=== PATIENT | female | born 1960 | race Caucasian/White ===

== ENCOUNTER 2016-09-25 19:24 | Emergency (ER) | payer BC ==
[~2016-09-25] VITALS: Ht 157.5 cm; Wt 71.7 kg
[2016-09-25 19:49] VITALS: BP_SYST 146
[2016-09-25] MEDS ORDERED: NACL 0.9% 1,000 ML IV ONE (20:30)
[2016-09-25] MEDS ORDERED: KETOROLAC TROMETHAMINE 30 MG VIAL IVP ONE (20:30)
[2016-09-25 21:07] LABS: BASOPHILS # (AUTO) 0.1 K/uL (0.0-0.2); BASOPHILS % (AUTO) 1.2 % (0.0-2.0); EOSINOPHILS # (AUTO) 0.3 K/uL (0.0-0.4); EOSINOPHILS % (AUTO) 3.2 % (0.0-4.0); HEMATOCRIT 45.3 % (36-48); HEMOGLOBIN 14.5 g/dL (12.0-16.0); LYMPHOCYTES # (AUTO) 3.3 K/uL (1.0-5.5); LYMPHOCYTES % (AUTO) 37.6 % (20.5-51.5); MEAN CORPUSCULAR HEMOGLOBIN 28 pg (27-31); MEAN CORPUSCULAR HGB CONC 32 % (32-36); MEAN CORPUSCULAR VOLUME 88 fL (79.0-98.0); MONOCYTES % (AUTO) 11.2 % (1.7-9.3); NEUTROPHILS % (AUTO) 46.8 % (40.0-70.0); PLATELET COUNT (AUTO) 273 K/uL (130-430); RED BLOOD CELL COUNT(AUTO) 5.13 MIL/uL (4.2-6.2); RED CELL DISTRIBUTION WIDTH 13.3 % (9.0-15.0); WHITE BLOOD COUNT (AUTO) 8.7 K/uL (4.8-10.8)
[2016-09-25 21:21] LABS: BILIRUBIN,URINE NEGATIVE (NEGATIVE); BLOOD, URINE NEGATIVE (NEGATIVE); CLARITY/URINE CLEAR (CLEAR); COLOR,URINE YELLOW (YELLOW); GLUCOSE,URINE NEGATIVE (NEGATIVE); KETONES,URINE NEGATIVE (NEGATIVE); LEUKOCYTE ESTERASE ,URINE TRACE (NEGATIVE); NITRITE, URINE NEGATIVE (NEGATIVE); PROTEIN URINE NEGATIVE (NEGATIVE); UROBILINOGEN,URINE 0.2 (0.2-1.0)
[2016-09-25 21:31] LABS: CALCIUM 8.7 mg/dL (8.4-11.0); CREATININE 0.58 mg/dL (0.55-1.30); POTASSIUM 4.3 mmol/L (3.5-5.1)
[2016-09-25 21:36] LABS: ALBUMIN 4.1 g/dL (3.4-4.8); TOTAL BILIRUBIN 0.2 mg/dL (0.0-1.0); TOTAL PROTEIN, SERUM 7.4 g/dL (6.4-8.3)
[2016-09-25 21:40] LABS: BACTERIA,URINE FEW /HPF (None Seen); RBC,URINE 0-3 /HPF (0-3)
[2016-09-25 21:41] LABS: MUCUS,URINE None Seen /LPF (None Seen)
[2016-09-25] MEDS ORDERED: SULFAMETHOXAZOLE/TRIMETHOPR DS 1 TABLET PO ONE (22:15)
[2016-09-25 22:17] VITALS: BP_SYST 139
== END 2016-09-25 22:17 | disposition home or self-care (01) ==
LOC: SED 19:24
DX: N39.0 Urinary tract infection, site not specified (principal); G43.909 Migraine, unspecified, not intractable, without status migrainosus; Z88.1 Allergy status to other antibiotic agents
CPT/HCPCS: 36415; 80053; 81000; 85025; 87040; 87086; 96360; 99284; J1885; J7030

== ENCOUNTER 2016-11-18 18:48 | Emergency (ER) | payer BC ==
[~2016-11-18] VITALS: Ht 157.5 cm; Wt 65.8 kg
[2016-11-18 19:11] VITALS: BP_SYST 163
--- NOTE | 2016-11-18 19:59 | NUR ---
Patient to ER bed 7 to gown for evaluation. Side rails up. Report given to SAUD BLAND.
--- NOTE | 2016-11-18 20:10 | NUR ---
Anabell Barlow MACHINE [employer] APPRENTICE at bedside examining patient
--- NOTE | 2016-11-18 20:10 | NUR ---
Pt brought by self, A&Ox4, respirations even and unlabored, pt states he had intermittent hives and her throat was closing, denies symptoms at this time, VS WNL, ambulatory, respirations even and unlabored, cap refill <3, O2 98% room air, no swelling noted.
[2016-11-18] MEDS ORDERED: LORATADINE 10 MG TABLET PO ONE (20:15)
[2016-11-18] MEDS ORDERED: EPINEPHrine 1 MG/ML AMP IM ONE (20:15)
[2016-11-18] MEDS ORDERED: PREDNISONE 20 MG TABLET PO ONE (20:15)
[2016-11-18] MEDS ORDERED: FAMOTIDINE 20 MG TABLET PO ONE (20:15)
--- NOTE | 2016-11-18 20:18 | NUR ---
Pt refused medications and eloped from the ER.
== END 2016-11-18 20:18 | disposition left against medical advice (07) ==
LOC: SED 18:48
DX: T78.49XA Other allergy, initial encounter (principal); R03.0 Elevated blood-pressure reading, without diagnosis of hypertension; G43.909 Migraine, unspecified, not intractable, without status migrainosus; Z53.20 Procedure and treatment not carried out because of patient's decision for unspecified reasons; Z88.1 Allergy status to other antibiotic agents; Z91.013 Allergy to seafood; X58.XXXA Exposure to other specified factors, initial encounter
CPT/HCPCS: 99282

== ENCOUNTER 2018-07-29 11:59 | Emergency (ER) | payer BC ==
[~2018-07-29] VITALS: Ht 157.5 cm; Wt 68.0 kg
[2018-07-29 12:09] VITALS: BP_SYST 151
--- NOTE | 2018-07-29 12:10 | NUR ---
Patient to ER bed 7 to gown for evaluation.
--- NOTE | 2018-07-29 12:15 | NUR ---
Pt presents to ED c/o RUQ abd pain since June gradually worsening.Pt has no acute distress noted.
--- NOTE | 2018-07-29 12:20 | NUR ---
ER at bedside examining patient.
[2018-07-29] MEDS ORDERED: KETOROLAC TROMETHAMINE 30 MG VIAL IVP ONE (12:30)
[2018-07-29] MEDS ORDERED: NACL 0.9% 1,000 ML IV ONE (12:30)
[2018-07-29 13:46] LABS: BILIRUBIN,URINE NEGATIVE (NEGATIVE); BLOOD, URINE NEGATIVE (NEGATIVE); CLARITY/URINE CLEAR (CLEAR); COLOR,URINE YELLOW (YELLOW); GLUCOSE,URINE NEGATIVE (NEGATIVE); KETONES,URINE NEGATIVE (NEGATIVE); LEUKOCYTE ESTERASE ,URINE NEGATIVE (NEGATIVE); NITRITE, URINE NEGATIVE (NEGATIVE); PROTEIN URINE NEGATIVE (NEGATIVE); UROBILINOGEN,URINE 0.2 (0.2-1.0)
[2018-07-29 13:49] LABS: BASOPHILS % (AUTO) 0.6 % (0.0-2.0); EOSINOPHILS # (AUTO) 0.1 K/uL (0.0-0.4); EOSINOPHILS % (AUTO) 1.9 % (0.0-4.0); HEMOGLOBIN 15.1 g/dL (12.0-16.0); LYMPHOCYTES # (AUTO) 2.7 K/uL (1.0-5.5); LYMPHOCYTES % (AUTO) 35.5 % (20.5-51.5); MEAN CORPUSCULAR HEMOGLOBIN 29 pg (27-31); MEAN CORPUSCULAR HGB CONC 33 % (32-36); MEAN CORPUSCULAR VOLUME 87 fL (79.0-98.0); MONOCYTES # (AUTO) 0.6 K/uL (0.0-1.0); MONOCYTES % (AUTO) 8.1 % (1.7-9.3); NEUTROPHILS # (AUTO) 4.1 K/uL (1.8-7.7); NEUTROPHILS % (AUTO) 53.9 % (40.0-70.0); PLATELET COUNT (AUTO) 253 K/uL (130-430); RED BLOOD CELL COUNT(AUTO) 5.19 MIL/uL (4.2-6.2); RED CELL DISTRIBUTION WIDTH 14.3 % (9.0-15.0); WHITE BLOOD COUNT (AUTO) 7.7 K/uL (4.8-10.8)
[2018-07-29 14:02] LABS: CREATININE 0.65 mg/dL (0.55-1.30); POTASSIUM 3.7 mmol/L (3.5-5.1)
[2018-07-29 14:08] LABS: ALBUMIN 3.7 g/dL (3.4-4.8); TOTAL BILIRUBIN 0.2 mg/dL (0.0-1.0)
--- NOTE | 2018-07-29 15:04 | NUR ---
Patient given written and verbal discharge instructions and verbalizes understanding. ER MD Delarosa discussed with patient the results and treatment provided. Patient in stable condition. ID arm band removed. IV catheter removed intact and dressing applied, no active bleeding. No Rx given. Patient educated on pain management and to follow up with PMD. Pain Scale 0. Opportunity for questions provided and answered. Medication side effect fact sheet provided.
[2018-07-29 15:14] VITALS: BP_SYST 142
== END 2018-07-29 15:14 | disposition home or self-care (01) ==
LOC: SED 11:59
DX: K82.4 Cholesterolosis of gallbladder (principal)
CPT/HCPCS: 36415; 76700; 80053; 81003; 82150; 83690; 85025; 96374; 99284; J1885; J7030

== ENCOUNTER 2020-04-30 13:13 | Emergency (ER) | payer BC ==
[~2020-04-30] VITALS: Ht 157.5 cm; Wt 72.6 kg
[2020-04-30 13:17] VITALS: BP_SYST 159
[2020-04-30 15:22] VITALS: BP_SYST 142
== END 2020-04-30 15:22 | disposition home or self-care (01) ==
LOC: SED 13:13
DX: M54.41 Lumbago with sciatica, right side (principal); M79.661 Pain in right lower leg; Z88.1 Allergy status to other antibiotic agents; Z91.013 Allergy to seafood
CPT/HCPCS: 93971; 99284

== ENCOUNTER 2020-05-22 10:20 | Emergency (ER) | payer BC ==
[~2020-05-22] VITALS: Ht 160 cm; Wt 72.6 kg
[2020-05-22 10:28] VITALS: BP_SYST 162
[2020-05-22] MEDS ORDERED: KETOROLAC TROMETHAMINE 60 MG/2 ML VIAL IM ONE ×2 (10:40→10:45)
[2020-05-22] MEDS ORDERED: NAPR-1172 PO (11:30)
[2020-05-22 11:35] VITALS: BP_SYST 144
== END 2020-05-22 11:36 | disposition home or self-care (01) ==
LOC: SED 10:20
DX: M54.41 Lumbago with sciatica, right side (principal); Z88.1 Allergy status to other antibiotic agents; Z91.013 Allergy to seafood
CPT/HCPCS: 96372; 99283; J1885

== ENCOUNTER 2021-01-17 10:08 | Emergency (ER) | payer BC ==
[~2021-01-17] VITALS: Ht 162.6 cm; Wt 72.6 kg
[~2021-01-17 10:08] MED LIST: NAPR-1172 PO
[2021-01-17 10:41] VITALS: BP_SYST 136
--- NOTE | 2021-01-17 10:44 | NUR ---
Patient to ER bed 1 to gown for evaluation. Side rails up. Report given to Maru BLAND.
--- NOTE | 2021-01-17 10:45 | NUR ---
ER DR. OCHOA AT THE BEDSIDE EXAMINING PT
[2021-01-17] MEDS ORDERED: LEVO750T45 PO (10:50)
[2021-01-17] MEDS ORDERED: FLUC150T PO (10:50)
--- NOTE | 2021-01-17 10:50 | NUR ---
PT CAME INTO ER C/O UTI SYMPTOMS, URINARY BURNING AND FREQUENCY. PT REQUESTING RX MEDICATONS. PT IS AMBULATORY, AAOX4, V/S STABLE
[2021-01-17 10:59] VITALS: BP_SYST 136
--- NOTE | 2021-01-17 11:01 | NUR ---
Patient given written and verbal discharge instructions and verbalizes understanding. ER MD discussed with patient the results and treatment provided. Patient in stable condition. ID arm band removed. Rx of DIFLUCAN AND LEVAQUIN given. Patient educated on pain management and to follow up with PMD. Pain Scale 0/10. Opportunity for questions provided and answered. Medication side effect fact sheet provided.
== END 2021-01-17 10:59 | disposition home or self-care (01) ==
LOC: SED 10:08
DX: N39.0 Urinary tract infection, site not specified (principal); Z88.8 Allergy status to other drugs, medicaments and biological substances; Z91.013 Allergy to seafood; Z79.899 Other long term (current) drug therapy; Z88.1 Allergy status to other antibiotic agents
CPT/HCPCS: 99283

== ENCOUNTER 2021-04-21 17:21 | Emergency (ER) | payer BC ==
[~2021-04-21] VITALS: Ht 157.5 cm; Wt 77.1 kg
[~2021-04-21 17:21] MED LIST changes: +FLUC150T PO; +LEVO750T45 PO
[2021-04-21 17:30] VITALS: BP_SYST 163
--- NOTE | 2021-04-21 17:38 | NUR ---
Patient to ER bed 02 to gown for evaluation. Side rails up.
--- NOTE | 2021-04-21 18:03 | NUR ---
Pt is A&Ox4. No s/s of distress. States she has no more jaw pain. VSS. Family member at bedside.
--- NOTE | 2021-04-21 18:14 | NUR ---
ER Physician at bedside.
[2021-04-21 19:05] LABS: BASOPHILS % (AUTO) 0.5 % (0.0-2.0); EOSINOPHILS % (AUTO) 0.1 % (0.0-4.0); HEMATOCRIT 44.4 % (36-48); HEMOGLOBIN 14.7 g/dL (12.0-16.0); LYMPHOCYTES # (AUTO) 2.2 K/uL (1.0-5.5); LYMPHOCYTES % (AUTO) 22.1 % (20.5-51.5); MEAN CORPUSCULAR HEMOGLOBIN 28 pg (27-31); MEAN CORPUSCULAR HGB CONC 33 % (32-36); MEAN CORPUSCULAR VOLUME 84 fL (79.0-98.0); MONOCYTES # (AUTO) 0.7 K/uL (0.0-1.0); MONOCYTES % (AUTO) 7.5 % (1.7-9.3); NEUTROPHILS # (AUTO) 6.8 K/uL (1.8-7.7); NEUTROPHILS % (AUTO) 69.8 % (40.0-70.0); PLATELET COUNT (AUTO) 297 K/uL (130-430); RED BLOOD CELL COUNT(AUTO) 5.27 MIL/uL (4.2-6.2); WHITE BLOOD COUNT (AUTO) 9.8 K/uL (4.8-10.8)
[2021-04-21 19:10] LABS: CREATININE 0.52 mg/dL (0.55-1.30); POTASSIUM 4.1 mmol/L (3.5-5.1)
[2021-04-21 19:19] LABS: ALBUMIN 3.9 g/dL (3.4-4.8); TOTAL BILIRUBIN 0.1 mg/dL (0.0-1.0)
[2021-04-21 20:20] VITALS: BP_SYST 162
--- NOTE | 2021-04-21 20:21 | NUR ---
Patient given written and verbal discharge instructions and verbalizes understanding. ER MD discussed with patient the results and treatment provided. Patient in stable condition. ID arm band removed. Patient educated on pain management and to follow up with PMD. Pain Scale . Opportunity for questions provided and answered. Medication side effect fact sheet provided.
== END 2021-04-21 20:21 | disposition home or self-care (01) ==
LOC: SED 17:21
DX: R68.84 Jaw pain (principal); Z88.1 Allergy status to other antibiotic agents; Z88.8 Allergy status to other drugs, medicaments and biological substances; Z79.899 Other long term (current) drug therapy
CPT/HCPCS: 36415; 71045; 80053; 83880; 84484; 85025; 85379; 93005; 99285

== ENCOUNTER 2021-08-31 00:16 | Emergency (ER) | payer BC ==
[~2021-08-31] VITALS: Ht 157.5 cm; Wt 78.9 kg
[2021-08-31 00:38] VITALS: BP_SYST 143
--- NOTE | 2021-08-31 00:51 | NUR ---
HERE FOR POSSIBLE ALLERGIC REACTION TO BACTRIM, PATIENT STATES THAT SHE IS ON ANTIBIOTICS FOR RECENTLY DX CHEKO UTI, PER PT SHE STOPS TAKING MEDS WHEN SHE NOTICED THAT HER LIPS SWELLS AND HAVING GENERALIZED RASH. PT STILL C/O DYSURIA.
[2021-08-31 01:17] LABS: BILIRUBIN,URINE NEGATIVE (NEGATIVE); BLOOD, URINE NEGATIVE (NEGATIVE); CLARITY/URINE CLEAR (CLEAR); COLOR,URINE YELLOW (YELLOW); GLUCOSE,URINE NEGATIVE (NEGATIVE); KETONES,URINE NEGATIVE (NEGATIVE); LEUKOCYTE ESTERASE ,URINE 2+ (NEGATIVE); NITRITE, URINE NEGATIVE (NEGATIVE); PROTEIN URINE NEGATIVE (NEGATIVE); UROBILINOGEN,URINE 0.2 (0.2-1.0)
--- NOTE | 2021-08-31 01:42 | NUR ---
PT STATES SHE WILL JUST GO HOME AND SEE HER PCP/URGENT CARE IN AM.
[2021-08-31 01:43] LABS: BACTERIA,URINE FEW /HPF (None Seen); RBC,URINE 0-3 /HPF (0-3)
== END 2021-08-31 01:42 | disposition left against medical advice (07) ==
LOC: SED 00:16
DX: R30.0 Dysuria (principal); R21 Rash and other nonspecific skin eruption; Z53.21 Procedure and treatment not carried out due to patient leaving prior to being seen by health care provider
CPT/HCPCS: 81000; 87086

== ENCOUNTER 2023-09-27 14:13 | Emergency (ER) | payer BC ==
[~2023-09-27] VITALS: Ht 157.5 cm; Wt 74.8 kg
[~2023-09-27 14:13] MED LIST changes: -LEVO750T45 PO; +LEVO750T64 PO
[2023-09-27 14:18] VITALS: BP_SYST 169; PULSE 81; RESP 18; TEMP 98.7; O2SAT 97
[2023-09-27 15:38] LABS: BASOPHILS % (AUTO) 0.6 % (0.0-2.0); EOSINOPHILS # (AUTO) 0.2 K/uL (0.0-0.4); EOSINOPHILS % (AUTO) 2.9 % (0.0-4.0); HEMATOCRIT 41.6 % (36-48); HEMOGLOBIN 14.1 g/dL (12.0-16.0); LYMPHOCYTES # (AUTO) 2.1 K/uL (1.0-5.5); LYMPHOCYTES % (AUTO) 27.2 % (20.5-51.5); MEAN CORPUSCULAR HEMOGLOBIN 29 pg (27-31); MEAN CORPUSCULAR HGB CONC 34 % (32-36); MEAN CORPUSCULAR VOLUME 85 fL (79.0-98.0); MONOCYTES # (AUTO) 0.8 K/uL (0.0-1.0); MONOCYTES % (AUTO) 10.9 % (1.7-9.3); NEUTROPHILS # (AUTO) 4.4 K/uL (1.8-7.7); NEUTROPHILS % (AUTO) 58.4 % (40.0-70.0); PLATELET COUNT (AUTO) 241 K/uL (130-430); RED CELL DISTRIBUTION WIDTH 14.2 % (9.0-15.0); WHITE BLOOD COUNT (AUTO) 7.6 K/uL (4.8-10.8)
[2023-09-27 15:46] LABS: CALCIUM 8.8 mg/dL (8.4-11.0); CREATININE 0.49 mg/dL (0.55-1.30)
[2023-09-27 16:27] VITALS: BP_SYST 147; PULSE 74; RESP 20; TEMP 97.5; O2SAT 97
== END 2023-09-27 16:15 | disposition left against medical advice (07) ==
LOC: SED 14:13
DX: I63.81 Other cerebral infarction due to occlusion or stenosis of small artery (principal); R20.0 Anesthesia of skin; G43.909 Migraine, unspecified, not intractable, without status migrainosus; Z85.3 Personal history of malignant neoplasm of breast; Z98.890 Other specified postprocedural states; Z91.013 Allergy to seafood; Z88.8 Allergy status to other drugs, medicaments and biological substances; Z79.899 Other long term (current) drug therapy; Z79.2 Long term (current) use of antibiotics
CPT/HCPCS: 36415; 70450-TC; 80048; 85025; 99284